=== PATIENT | male | born 1940 | race Caucasian/White ===

== ENCOUNTER → 2020-12-31 | Outpatient (CLI) | payer MEDICARE ==
[~2020-12-31] MED LIST: CLEOCIN HCL300 MG PO; CRESTOR20 MG PO; ECOTRIN81 MG PO; ELIQUIS5 MG PO; HYDROCODON-ACE1 EAC4 PO; KEFLEX750 MG PO; LEVOTHYROXINE75 MC1 PO; NORVASC5 MG PO; SOTALOL80 MG PO; TAMSULOSIN HCL0.4 MG PO
[2020-12-31 09:28] LABS: HEMOGLOBIN 14.4 gm/dl (14.0-17.5); RED BLOOD COUNT 4.8 M/UL (4.20-5.50); WHITE BLOOD COUNT 7.7 K/UL (4.5-11.0)
[2020-12-31 09:48] LABS: BUN/CREATININE RATIO 16 (0-10)
== END ==
LOC: LAB 09:06
PROVIDERS: Internal Medicine Cardiovascular Disease
DX: Z45.02 Encounter for adjustment and management of automatic implantable cardiac defibrillator (principal); I47.2 Ventricular tachycardia; I25.5 Ischemic cardiomyopathy; I50.22 Chronic systolic (congestive) heart failure; Z20.822 Contact with and (suspected) exposure to COVID-19
CPT/HCPCS: 36415; 71046; 80048; 85025; U0003

== ENCOUNTER → 2021-01-04 | Outpatient (CLI) | payer MEDICARE | LOC: CATH 09:39 | DX: Z45.02 Encounter for adjustment and management of automatic implantable cardiac defibrillator (principal); I25.119 Atherosclerotic heart disease of native coronary artery with unspecified angina pectoris; I50.22 Chronic systolic (congestive) heart failure; E78.5 Hyperlipidemia, unspecified; I11.0 Hypertensive heart disease with heart failure; F17.210 Nicotine dependence, cigarettes, uncomplicated; I25.5 Ischemic cardiomyopathy; I48.0 Paroxysmal atrial fibrillation; E03.9 Hypothyroidism, unspecified; Z79.82 Long term (current) use of aspirin; Z79.899 Other long term (current) drug therapy; Z95.1 Presence of aortocoronary bypass graft | CPT/HCPCS: 33240; 93641; 99152; 99153; C1721; J2250; J3010; J3370; J7040; J7050 ==